=== PATIENT | female | born 1990 | race Caucasian/White ===

== ENCOUNTER 2018-12-16 14:22 | Outpatient (CLI) | payer OTHER ==
[2018-12-16] VITALS (8 sets, daily range): BP systolic 119–140; BP diastolic 70–86
[~2018-12-16] VITALS: Ht 170.2 cm; Wt 82.0 kg
[2018-12-16] MEDS ORDERED: PRENTAB9 PO (14:42)
[2018-12-16 15:48] LABS: HEMATOCRIT 34.6 % (36.0-47.0); HEMOGLOBIN 11.8 g/dl (12.0-15.5); MEAN CORPUSCULAR HEMOGLOBIN 29.9 pg (27.0-33.0); MEAN CORPUSCULAR HGB CONC 34.1 g/dl (32.0-36.5); MEAN CORPUSCULAR VOLUME 87.6 fl (80.0-96.0); PLATELET COUNT, AUTOMATED 187 10^3/uL (150-450); RED BLOOD COUNT 3.95 10^6/uL (4.00-5.40); WHITE BLOOD COUNT 9.5 10^3/uL (4.0-10.0)
[2018-12-16 15:57] LABS: TOTAL PROTEIN,RANDOM URINE 12.7 MG/DL (0.0-12.0)
[2018-12-16 16:04] LABS: URIC ACID 3.2 MG/DL (2.6-6.0)
--- NOTE | 2018-12-16 16:30 | IPNPDOC ---
Text Note Date of Service The patient was seen on 12/16/18. NOTE [id number] @ 1609 28 yo @ 37+4 by LMP([id number]) and 21+5 wk US on [id number] presents to L&D Triage from clinic d/t isolated elevated BP(135/95). Upon entry to L&D Tr iage BP- 140/83. All BPs since that time have been normal. Notes irregular CTXs. Hx of eclampi with her first and GHTN with 3 SVDs. S: Pt resting in bed in semi-fowlers. Denies LEAL, n/v, visual changes and RUQ pain. Denies DFM, LOF, and vaginal bleeding. O- VS- last elevated BP @ 1442, all other BPs WNL, afebrile FHR- 150, moderate variability, + accels, no decels CTX-irregular, lasting < 90 sec, CTXs not palpated, resting tone palpated as soft SVE-deferred LABs- Item Value Date Time White Blood Count 9.5 10^3/uL 12/16/18 1527 Red Blood Count 3.95 10^6/uL L 12/16/18 1527 Hemoglobin 11.8 g/dl L 12/16/18 1527 Hematocrit 34.6 % L 12/16/18 1527 Mean Corpuscular Volume 87.6 fl 12/16/18 1527 Mean Corpuscular Hemoglobin 29.9 pg 12/16/18 1527 Mean Corpuscular Hemoglobin Concent 34.1 g/dl 12/16/18 1527 Red Cell Distribution Width 13.0 % 12/16/18 1527 Platelet Count 187 10^3/uL 12/16/18 1527 Nucleated Red Blood Cells % (auto) 0.0 % 12/16/18 1527 Uric Acid 3.2 MG/DL 12/16/18 1527 Aspartate Amino Transf (AST/SGOT) 21 U/L 12/16/18 1527 Alanine Aminotransferase (ALT/SGPT) 15 U/L 12/16/18 1527 Lactate Dehydrogenase 225 U/L 12/16/18 1527 Urine Random Creatinine 109.0 MG/DL 12/16/18 1527 Urine Random Total Protein 12.7 MG/DL H 12/16/18 1527 PCR-0.11 A: 28 yo @ 37+4 with irregular CTXs and elevated BP x 2 < 4 hour apart. Reactive NST P: Discharge to home with strict return precautions to include DFM, LOF, CTXs, vaginal bleeding, and pre-e precautions. Spent 15 min on education. VS,Fishbone, I+O VS, Fishbone, I+O Laboratory Tests 12/16/18 15:27 Red Blood Count 3.95 L, Mean Corpuscular Volume 87.6, Mean Corpuscular Hemoglobin 29.9, Mean Corpuscular Hemoglobin Concent 34.1, Red Cell Distribution Width 13.0 Vital Signs Date Time Temp Pulse Resp B/P (MAP) Pulse Ox O2 Delivery O2 Flow Rate FiO2 12/16/18 14:42 98.1 136 18 140/83 (102) SONAL MTZ CNM Dec 16, 2018 16:30
== END 2018-12-16 16:45 | disposition home or self-care (01) ==
LOC: M LDO 14:22
PROVIDERS: ATTEND Midwife
DX: O26.893 Other specified pregnancy related conditions, third trimester (principal); Z3A.37 37 weeks gestation of pregnancy; R03.0 Elevated blood-pressure reading, without diagnosis of hypertension
CPT/HCPCS: 59025; 82570; 83615; 84156; 84450; 84460; 84550; 85027; G0378; G0463

== ENCOUNTER 2018-12-18 16:51 | Inpatient (IN) | payer OTHER ==
[~2018-12-18] VITALS: Ht 170.2 cm; Wt 81.7 kg
[2018-12-18] VITALS (11 sets, daily range): BP systolic 107–126; BP diastolic 55–85
[~2018-12-18 16:51] MED LIST: PRENTAB9 PO
[2018-12-18] MEDS ORDERED: LACTATED RINGER'S 1000 ML IV STA (17:29)
--- NOTE | 2018-12-18 17:57 | HPEPDOC ---
Obstetrical History & Physical General Date of Admission Dec 18, 2018 at 16:51 History of Present Illness 28 yo @ 37+6 by LMP([id number]) and 21+5 wk US on [id number] presents to L&D ambulatory for scheduled IOL d/t GHTN. Denies DFM, LOF, vaginal bleeding, CTXs, LEAL, visual changes, n/v, and RUQ pain. GBS negative. Chief Complaint: Induction of labor Information Provided By: Patient Age: 28 : 6 Term: 4 Pre-term: 0 Abortions: 1 Livin Care Care: Good Care Dating Final EDC: January 02, 2019 Final EDC for Daily Update: January 02, 2019 Final EDC by: LMP, 2nd trimester (US) (21+5 wk US on [id number]) LMP: Mar 28, 2018 EGA at Admission: 37.6 Antepartum Course Diagnos(e)s 1. hx of eclampsia in 1st 2. hx of GHTN in all other pregnancies Height (inches): 67 Pre- weight (lbs.): 141 Admission Weight (lbs.): 180 Change in Weight (lbs.): 39 Past Medical History Past Obstetrical History #1: Past Obstetrical History: Multigravida Date of Delivery: Nov 05, 2004 Gestation: 38 Type of Delivery: Spontaneous Vaginal Del. Sex of Infant: Female Weight of Infant (grams): 2863 Complications: Yes (eclampsia) Past Obstetrical History #2: Past Obstetrical History: Multigravida Date of Delivery: May 31, 2018 Gestation: 37 Type of Delivery: Spontaneous Vaginal Del. Sex of Infant: Male Weight of Infant (grams): 3374 Complications: Yes (GHTN) Past Obstetrical History #3: Past Obstetrical History: Multigravida Date of Delivery: Oct 01, 2012 Gestation: 38 Type of Delivery: Spontaneous Vaginal Del. Sex of Infant: Male Weight of Infant (grams): 3770 Complications: Yes (GHTN) Past Obstetrical History #4: Past Obstetrical History: Multigravida Date of Delivery: Feb 07, 2016 Gestation: 37 Type of Delivery: Spontaneous Vaginal Del. Sex of Infant: Male Weight of (grams): 3430 Complications: Yes (GHTN) METALLURGICAL TESTER History: Spontaneous Past Medical History Medical History DENIES Surgical History: Denies/None Family History Significant Family History: No pertinent family hx Social History Marital Status: Family situation: Spouse/partner home Psychosocial History: No pertinent psych hx * Smoker: non-smoker Alcohol: Denies Drugs: denies Abuse Violence Screening Have you been hit/kicked/slapp: No Have you been sexually assault: No Imunizations Tdap status: current ([id number]) Influenza Status: current () Allergies Coded Allergies: Sulfa (Sulfonamide Antibiotics) (Verified Allergy, Unknown, RASH, HIVES, 12/16/18) Medications Scheduled No.137/Iron/Folic Acd ( Vitamin Tablet) 1 Each Tablet, 1 TAB PO DAILY Physical Examination Physical Examination GENERAL: A&O x 3 BREAST: . ABDOMEN: Gravid and non-tender to touch. FETUS: VTX by SVE and by David. HEART RATE: RRRR LUNGS: CTA EXTREMITIES: No edema. No clonus. DTR +1 EFW- 3600 grams Vital Signs/I&O Vital Signs Date Time Temp Pulse Resp B/P (MAP) Pulse Ox O2 Delivery O2 Flow Rate FiO2 12/18/18 17:09 98.3 115 16 121/79 (93) Laboratory Data 24H LABS Laboratory Tests 2 12/18/18 17:02: Serology Scanned Report Hepatitis B Testing Pertinent Laboratoy Data Blood Type: O+ RBC Antibody Screen: Negative HIV: Negative Hepatitis B: Negative Hepatitis C: Unknown Rapid Plasma Reagin: Nonreactive Rubella: Immune Varicella: Immune Chlamydia/Gonorrhea: Negative Group B Streptococcus: Negative Anatomy Ultrasound Ultrasound Date: Nov 29, 2018 Placenta Location: Anterior Normal Anatomy: Yes Placenta Previa: No Estimated Weight (grams): 2531 Steroid Therapy Steroid Therapy: No Vaginal Examination Dilation: 1cm Effacement: 50% Station: -2 Cervical Consistency: Soft Cervical Position: Middle Presentation: Cephalic presentation Position: Vertex (occiput) Assessment Heart Rate (FHR): 150 Variability: Minimal to moderate Accelerations: Positive Decelerations: None Tocometer Contractions: Yes Frequency: regular, other (Q 2-4 min) Duration: less than 90 seconds Strength: palpated as mild, resting tone palp/soft Multi-drug resistant Organism: No history of MDRO Assessment/Plan Assessment 28 yo @ 37+6 here for IOL d/t GHTN. GBS negative. Plan Admit and orient. 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 Diet: regular GBS-negative Labs and IV per unit protocol. baseline pre-e labs Counseled on Pitocin and IOL LR: Bolus 1000 mL, then at 125 mL/hr when active Anticipate C-S as appropriate. SONAL MTZ CNM Dec 18, 2018 17:57
[2018-12-18 19:23] LABS: HEMATOCRIT 33.1 % (36.0-47.0); MEAN CORPUSCULAR HEMOGLOBIN 29.1 pg (27.0-33.0); MEAN CORPUSCULAR HGB CONC 33.2 g/dl (32.0-36.5); MEAN CORPUSCULAR VOLUME 87.6 fl (80.0-96.0); PLATELET COUNT, AUTOMATED 205 10^3/uL (150-450); RED BLOOD COUNT 3.78 10^6/uL (4.00-5.40); WHITE BLOOD COUNT 9.7 10^3/uL (4.0-10.0)
[2018-12-18 19:39] LABS: ALT/SGPT 15 U/L (12-78); LDH LACTATE DEHYDROGENASE 186 U/L (84-246)
--- NOTE | 2018-12-18 20:50 | IPNPDOC ---
Text Note Date of Service The patient was seen on 12/18/18. NOTE [id number] Cook Balloon placed @ 1845 with 60/60 ml NS VS,Fishbone, I+O VS, Fishbone, I+O Laboratory Tests 12/18/18 19:03 Red Blood Count 3.78 L, Mean Corpuscular Volume 87.6, Mean Corpuscular Hemoglobin 29.1, Mean Corpuscular Hemoglobin Concent 33.2, Red Cell Distribution Width 13.1 Vital Signs Date Time Temp Pulse Resp B/P (MAP) Pulse Ox O2 Delivery O2 Flow Rate FiO2 12/18/18 19:28 98.6 83 16 117/73 (88) SONAL MTZ CNM Dec 18, 2018 20:50
[2018-12-19] VITALS (59 sets, daily range): BP systolic 77–134; BP diastolic 47–89
[2018-12-19] MEDS ORDERED: OXYTOCIN 30 UNITS IN 0.9% NaCl 500ML IV BAG (J2590) As Ordered ONE (02:13)
[2018-12-19] MEDS ORDERED: OXYTOCIN DRIP 30 UNITS in APPROPRIATE DILUENT 1 EA IV SCH ×2 (02:15→13:00)
[2018-12-19] MEDS: LR 1,000 ML IV SCH ×3 (03:22→08:57)
[2018-12-19] MEDS ORDERED: FENTANYL 2MCG/ML ROPIVACAINE 0.2% IN 0.9% NACL 100ML IVBAG As Ordered ONE (06:42)
--- NOTE | 2018-12-19 07:18 | IPNPDOC ---
Text Note Date of Service The patient was seen on 12/19/18. NOTE [id number] @ 0711 28 yo @ 38+0 here for IOL d/t GHTN Cook Balloon out overnight. Pitocin started S: Resting in bed in semi-fowlers. Reports increasing discomfort and pelvic pain. Requesting epidural. Spouse at bedside O: VS- WNL, afebrile FHR-135, moderate variability, + accels, intermittent early decelerations CTX-Q 3-4 min, lasting <90 sec, palpated as mod-strong, resting tone palpated as soft SVE- 6/75/-2, soft/mid/vtx Pitocin @ 10 mU/min A: 28 yo @ 38+0 with GHTN. CAT I FHR tracing, all BPs normal range, cervical change noted P: Continue to monitor and assess, continue to titrate pitocin per unit protocol, Epidural now SBAR to Dr. Mercado @ 0830 VS,Fishbone, I+O VS, Fishbone, I+O Laboratory Tests 12/18/18 19:03 Red Blood Count 3.78 L, Mean Corpuscular Volume 87.6, Mean Corpuscular Hemoglobin 29.1, Mean Corpuscular Hemoglobin Concent 33.2, Red Cell Distribution Width 13.1 Vital Signs Date Time Temp Pulse Resp B/P (MAP) Pulse Ox O2 Delivery O2 Flow Rate FiO2 12/19/18 05:59 98.5 93 16 103/62 (76) I&O- Last 24 Hours up to 6 AM 12/19/18 06:00 Intake Total 1000 ml Balance 1000 ml SONAL MTZ CNM Dec 19, 2018 07:18
[2018-12-19] MEDS ORDERED: EPIDURAL COMMENT XX SCH (07:50)
[2018-12-19] MEDS ORDERED: ePHEDrine SULFATE 25 MG/5 ML(5MG/ML) SYRINGE IV PRN (07:50)
[2018-12-19] MEDS ORDERED: ONDANSETRON 4MG/2ML VIAL (J2405) IV PRN (07:50)
[2018-12-19] MEDS ORDERED: diphenhydrAMINE INJ 50MG/ML VIAL (J1200) IV PRN (07:50)
[2018-12-19] MEDS ORDERED: REFRIGERATOR IV KEYS XX PRN (07:50)
[2018-12-19] MEDS ORDERED: EPIDURAL/PCA KEYS XX PRN (07:50)
[2018-12-19] MEDS ORDERED: NALOXONE INJ 0.4 MG/1 ML VIAL (J2310) IV PRN (07:50)
[2018-12-19] MEDS ORDERED: LACTATED RINGER'S 1000 ML IV PRN (07:50)
[2018-12-19] MEDS ORDERED: FENTANYL/ROPIVACAINE/NACL BAG 100 ML EPIDURAL SCH (07:50)
--- NOTE | 2018-12-19 10:38 | IPNPDOC ---
Text Note Date of Service The patient was seen on 12/19/18. NOTE SBAR from BIJU Swartz at 0830. IOL for GHTN. . Pit at 10-12 now NST reassuring-Cat 2, slight tachycardia, accels present with mod caro Cx /-1, not much changed from last check 2-3 hrs ago. AROM with clr fluid Doing well, recheck in ~2 hrs, sooner prn Sessions A-FIB/RADHA A-FIB History Current/History of A-Fib/PAF?: No Current Oral Anticoagulant The: No VS,Fishbone, I+O VS, Fishbone, I+O Laboratory Tests 12/18/18 19:03 Red Blood Count 3.78 L, Mean Corpuscular Volume 87.6, Mean Corpuscular Hemoglobin 29.1, Mean Corpuscular Hemoglobin Concent 33.2, Red Cell Distribution Width 13.1 Vital Signs Date Time Temp Pulse Resp B/P (MAP) Pulse Ox O2 Delivery O2 Flow Rate FiO2 12/19/18 09:34 112 16 100/61 (74) 12/19/18 09:25 98.6 I&O- Last 24 Hours up to 6 AM 12/19/18 06:00 Intake Total 1000 ml Balance 1000 ml SESSIONS,LORENZO Finch MD Dec 19, 2018 10:38
[2018-12-19] MEDS ORDERED: MEASLES,MUMPS,RUBELLA VACCINE INJ (MMR-II) (90707) SC SCH (12:45)
[2018-12-19] MEDS ORDERED: RHOGAM 300 MCG (1500 IU) INJ (J2790) IM SCH (12:45)
[2018-12-19] MEDS ORDERED: DIBUCAINE 1% OINTMENT 30GM TOP PRN (12:45)
[2018-12-19] MEDS ORDERED: METOCLOPRAMIDE INJ 10MG/2ML VIAL (J2765) IV PRN (12:45)
--- NOTE | 2018-12-19 12:52 | DNPDOC ---
[facility] Delivery Note Delivery Note DATE OF DELIVERY: [id number] PREDELIVERY DIAGNOSIS: 38 0/7 weeks' gestation and labor. POST DELIVERY DIAGNOSIS: Delivered. PROCEDURE: Spontaneous vaginal delivery CELL OPERATOR: Dr. Mercado ANESTHESIA: epidural ESTIMATED BLOOD LOSS: 200 mL. FINDINGS: 7 pound 10 ounce female infant, Score 9/9, nuchal cord times 1 DELIVERY SUMMARY: Called to room, C/C/+2. 2 sets of pushes, del'd the vtx RAMY to LOT. Nuchal cord reduced. No delay of ant/post shoulder. To abd, vigorous. Cord C/C by FOB. Cord blood. Placenta intact. Fundus firm, pit going 999. Small inner left labial lac, not repaired, not bleeding, approximates well. No other lacs. Uncomplicated. LORENZO Ho MD, MD Dec 19, 2018 12:52
[2018-12-19] MEDS ORDERED: miSOPROStol 200 MCG TAB (S0191) PR ONE (13:00)
[2018-12-19] MEDS: IBUPROFEN 800 MG TAB PO PRN (15:28)
[2018-12-19] MEDS: ACETAMINOPHEN TAB 650MG DOSE (2X325MG) PO PRN ×2 (18:42→22:18)
[2018-12-19] MEDS: DOCUSATE SODIUM 100 MG CAP PO SCH (21:06)
[2018-12-20] MEDS: IBUPROFEN 800 MG TAB PO PRN (04:40)
--- NOTE | 2018-12-20 05:18 | DS.PDOC ---
Discharge Summary General Date of Admission Dec 18, 2018 at 16:51 Date of Discharge [id number] Discharge Summary ADMITTING DIAGNOSES: Induction for HTN DISCHARGE DIAGNOSES: Same, HOSPITAL COURSE: Admitted and delivery uncomplicated, . course uncomplicated. DISCHARGE MEDICATIONS: Motrin, Lanolin DISCHARGE INSTRUCTIONS: Nothing in the vagina for 6 weeks. F/U in OBGYN clinic in 6-8 weeks. Sessions Vital Signs/I&Os Vital Signs Date Time Temp Pulse Resp B/P (MAP) Pulse Ox O2 Delivery O2 Flow Rate FiO2 12/19/18 18:00 99.1 88 18 116/58 (77) 12/19/18 15:20 100 I&O- Last 24 Hours up to 6 AM 12/20/18 06:00 Intake Total 3300 ml Output Total 1350 ml Balance 1950 ml Discharge Medications Scheduled No.137/Iron/Folic Acd ( Vitamin Tablet) 1 Each Tablet, 1 TAB PO DAILY, (Reported) Allergies Coded Allergies: Sulfa (Sulfonamide Antibiotics) (Verified Allergy, Unknown, RASH, HIVES, 12/16/18) SESSIONS,LORENZO Finch MD Dec 20, 2018 05:18
--- NOTE | 2018-12-20 05:25 | IPNPDOC ---
Text Note Date of Service The patient was seen on 12/20/18. NOTE PPD1 States feeling well, pain controlled with prescribed meds. Baby bonding and feeding well. No heavy VB. Lochia slowing. Ambulatory. Tolerating PO without issues. Voiding spont. No CP/LP/SOB. VSSAF NAD A&O LE no C/C/E Ut at U-2, firm a/p: Doing well. Cont routine care. D/C today. Sessions A-FIB/RADHA A-FIB History Current/History of A-Fib/PAF?: No Current Oral Anticoagulant The: No VS,Fishbone, I+O VS, Fishbone, I+O Vital Signs Date Time Temp Pulse Resp B/P (MAP) Pulse Ox O2 Delivery O2 Flow Rate FiO2 12/19/18 18:00 99.1 88 18 116/58 (77) 12/19/18 15:20 100 I&O- Last 24 Hours up to 6 AM 12/20/18 06:00 Intake Total 3300 ml Output Total 1350 ml Balance [address] MD Dec 20, 2018 05:25
[2018-12-20] MEDS ORDERED: ACET1TAB55 PO (05:30)
[2018-12-20] MEDS ORDERED: IBUP80TA PO (05:30)
[2018-12-20] MEDS ORDERED: PRENCHW PO (05:30)
[2018-12-20 05:45] VITALS: BP 105/57
[2018-12-20] MEDS: DOCUSATE SODIUM 100 MG CAP PO SCH (08:19)
[2018-12-20] MEDS ORDERED: PRENATAL VITAMINS CHEWABLE TABLET PO SCH (09:00)
== END 2018-12-20 14:30 | disposition home or self-care (01) | DRG 807 ==
LOC: M LDI 16:51 → M OBS 12-19 15:17
PROVIDERS: ADMIT Midwife; ATTEND Midwife
PROC: 3E033VJ Introduction of Other Hormone into Peripheral Vein, Percutaneous Approach (ICD-10-PCS; 2018-12-18)
PROC: 10E0XZZ Delivery of Products of Conception, External Approach (ICD-10-PCS; principal; 2018-12-19)
DX: O13.4 Gestational [pregnancy-induced] hypertension without significant proteinuria, complicating childbirth (principal); Z37.0 Single live birth; Z3A.37 37 weeks gestation of pregnancy; Z88.2 Allergy status to sulfonamides; O69.82X0 Labor and delivery complicated by other cord entanglement, without compression, not applicable or unspecified; O70.0 First degree perineal laceration during delivery

== ENCOUNTER → 2020-02-06 | Outpatient (CLI) | payer OTHER ==
[~2020-02-06] MED LIST changes: +ACET1TAB55 PO; +IBUP80TA PO; +PRENCHW PO
--- NOTE | 2020-02-06 13:46 | REP ---
REASON: Inversion injury. COMPARISON: No priors. FINDINGS: No acute fracture or destructive osseous lesion. The mortise is intact. Electronically Signed by Osvaldo Noel DO 02/06/2020 04:12 P
== END ==
LOC: M LRY 11:56
PROVIDERS: ATTEND Physician Assistant
DX: S99.912A Unspecified injury of left ankle, initial encounter (principal); X58.XXXA Exposure to other specified factors, initial encounter; Y92.9 Unspecified place or not applicable

== ENCOUNTER → 2022-06-04 | Outpatient (REF) | payer OTHER ==
[2022-06-04 13:38] LABS: APPEARANCE, URINE MANUAL HAZY (CLEAR); COLOR, URINE MANUAL YELLOW (YELLOW)
[2022-06-04 13:41] LABS: BILIRUBIN, URINE MANUAL NEGATIVE (NEGATIVE); BLOOD URINE MANUAL NEGATIVE (NEGATIVE); GLUCOSE, URINE (UA) MANUAL NEGATIVE (NEGATIVE); KETONE, URINE MANUAL NEGATIVE (NEGATIVE); LEUKOCYTE ESTERASE, URINE MAN NEGATIVE (NEGATIVE); NITRITE, URINE MANUAL NEGATIVE (NEGATIVE); PROTEIN, URINE MANUAL NEGATIVE (NEGATIVE); SPECIFIC GRAVITY,URINE MANUAL 1.015 (1.002-1.035); UROBILINOGEN, URINE MANUAL NORMAL (NORMAL)
[2022-06-04 13:48] LABS: BACTERIA, URINE SMALL AMOUNT; HYALINE CAST, URINE NONE SEEN /lpf (0-1); SQUAMOUS EPITHELIAL CELL URINE MOD AMOUNT /hpf (SMALL AMT)
== END ==
LOC: M LAB REF 12:20
PROVIDERS: ATTEND Physician Assistant
DX: N39.0 Urinary tract infection, site not specified (principal)

== ENCOUNTER → 2022-06-24 | Outpatient (REF) | payer OTHER ==
[2022-06-24 12:25] LABS: APPEARANCE, URINE MANUAL HAZY (CLEAR); COLOR, URINE MANUAL YELLOW (YELLOW)
[2022-06-24 12:28] LABS: BILIRUBIN, URINE MANUAL NEGATIVE (NEGATIVE); BLOOD URINE MANUAL NEGATIVE (NEGATIVE); GLUCOSE, URINE (UA) MANUAL NEGATIVE (NEGATIVE); KETONE, URINE MANUAL NEGATIVE (NEGATIVE); NITRITE, URINE MANUAL NEGATIVE (NEGATIVE); PROTEIN, URINE MANUAL NEGATIVE (NEGATIVE); UROBILINOGEN, URINE MANUAL NORMAL (NORMAL)
[2022-06-24 12:29] LABS: LEUKOCYTE ESTERASE, URINE MAN POSITIVE (NEGATIVE)
[2022-06-24 12:42] LABS: SQUAMOUS EPITHELIAL CELL URINE LARGE AMOUNT /hpf (SMALL AMT)
[2022-06-24 12:43] LABS: AMORPHOUS SEDIMENT, URINE MOD AMOUNT (NEGATIVE); BACTERIA, URINE SMALL AMOUNT; HYALINE CAST, URINE NONE SEEN /lpf (0-1); MUCUS, URINE MOD AMOUNT (NEGATIVE)
== END ==
LOC: M LAB REF 11:58
PROVIDERS: ATTEND Physician Assistant Medical
DX: N39.0 Urinary tract infection, site not specified (principal)